=== PATIENT | female | born 1960 | race American Indian/Alaskan Native ===

== ENCOUNTER 2016-12-02 01:46 | Emergency (ER) | payer OTHER ==
[2016-12-02 02:02] VITALS: BP 135/87
[2016-12-02 02:44] LABS: Basophils % (Auto) 1.1 % (0.0-1.8); Eosinophils % (Auto) 1.6 % (0.0-4.3); Hematocrit 37.4 % (30.3-42.9); Hemoglobin 12.7 gm/dl (10.1-14.3); Mean Corpuscular HGB Conc 34 % (30-34); Mean Corpuscular Hemoglobin 31 pg (28-32); Mean Corpuscular Volume 93 fl (79-97); Platelet Count 314 K/mm3 (140-440); Red Blood Count 4.04 M/mm3 (3.65-5.03); Red Cell Distribution Width 14.8 % (13.2-15.2); White Blood Count 6.6 K/mm3 (4.5-11.0)
[2016-12-02 02:59] LABS: Alanine Aminotransferase 14 units/L (7-56); Albumin 4.2 g/dL (3.9-5); Albumin/Globulin Ratio 1.4 %; Alkaline Phosphatase 73 units/L (35-129); Anion Gap 17 mmol/L; BUN/Creatinine Ratio 7.77; Blood Urea Nitrogen 7 mg/dL (7-17); Carbon Dioxide 24 mmol/L (22-30); Chloride 104.2 mmol/L (98-107); Glucose 125 mg/dL (65-100); Potassium 3.4 mmol/L (3.6-5.0); Sodium 142 mmol/L (137-145); Total Protein 7.3 g/dL (6.3-8.2)
--- NOTE | 2016-12-19 00:36 | ED Elopement Review ---
ED Pt Elopement review - Results review Lab results: Laboratory Tests 12/02/16 12/02/16 12/02/16 02:04 02:04 02:04 WBC 6.6 RBC 4.04 Hgb 12.7 Hct 37.4 MCV 93 MCH 31 MCHC 34 RDW 14.8 Plt Count 314 Lymph % (Auto) 37.8 H [place] % (Auto) 6.5 Eos % (Auto) 1.6 Baso % (Auto) 1.1 Lymph # 2.5 [place] # 0.4 Eos # 0.1 Baso # 0.1 Seg Neutrophils % 53.0 Seg Neutrophils # 3.5 Sodium 142 Potassium 3.4 L Chloride 104.2 Carbon Dioxide 24 Anion Gap 17 BUN 7 Creatinine 0.9 Estimated GFR > 60 BUN/Creatinine Ratio 7.77 Glucose 125 H Calcium 9.0 Total Bilirubin 0.50 AST 17 ALT 14 Alkaline Phosphatase 73 Total Protein 7.3 Albumin 4.2 Albumin/Globulin Ratio 1.4 HCG, Qual Negative - Call Back decision Pt Call Back Decision: Pt to F/U with PMD
== END 2016-12-02 05:11 | disposition left against medical advice (07) ==
LOC: ED 01:46
DX: R10.2 Pelvic and perineal pain (principal); Z53.21 Procedure and treatment not carried out due to patient leaving prior to being seen by health care provider
CPT/HCPCS: 36415; 80053; 84703; 85025